=== PATIENT | female | born 1995 | race African-American/Black ===

== ENCOUNTER 2020-06-07 20:47 | Emergency (ER) | payer MEDICAID ==
[~2020-06-07] VITALS: Ht 160 cm; Wt 104.3 kg
[2020-06-07] MEDS ORDERED: Morphine Sulfate 2mg/ml Inj(IV/IM USE ONLY) ONE (20:55)
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
[2020-06-07 21:00] VITALS: BP 132/74
[2020-06-07] MEDS ORDERED: Morphine Sulfate 2mg/ml Inj(IV/IM USE ONLY) IM ONE (21:00)
[2020-06-07] MEDS ORDERED: Tetanus/Diptheria/Pertussis IM ONE (21:15)
--- NOTE | 2020-06-07 21:30 | Diagnostic Imaging Report ---
INDICATION: Pain, trauma COMPARISON: FINDINGS: Single frontal view demonstrates a normal cardiomediastinal silhouette. The lungs are clear. No pleural effusions. The visualized osseous structures are within normal limits. Negative for rib fracture or pneumothorax. IMPRESSION: No acute cardiopulmonary disease.
[2020-06-07 21:45] VITALS: BP 129/85
== END 2020-06-07 21:45 | disposition short-term general hospital (02) ==
LOC: EMR 21:00
DX: S41.111A Laceration without foreign body of right upper arm, initial encounter (principal); S21.111A Laceration without foreign body of right front wall of thorax without penetration into thoracic cavity, initial encounter; S51.811A Laceration without foreign body of right forearm, initial encounter; R10.9 Unspecified abdominal pain; R00.0 Tachycardia, unspecified; X99.9XXA Assault by unspecified sharp object, initial encounter; Y92.9 Unspecified place or not applicable; Z23 Encounter for immunization
CPT/HCPCS: 71045; 90471; 90715; 96372; J2270; Z7502; 99285

== ENCOUNTER 2020-12-23 18:31 | Emergency (ER) | payer MEDICAID ==
[~2020-12-23] VITALS: Ht 160 cm; Wt 77.6 kg
--- NOTE | 2020-12-23 18:48 | NUR ---
ED Nurse Note: 32 weeks of woman walked in to ER from home due to pt has not felt baby moving for 4 hours and constant lower back pain since yesterday. pt aao x4 and ambulatory. calm and cooperative. skin clean and intact. pt denied cardiac or pulmonary distress. no Covid symptoms. pt had abdominal cramping by lunch time and took a nap and cramping is gone now but lower back pain present. 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 pt provided urine sample.
--- NOTE | 2020-12-23 18:52 | NUR ---
ED Nurse Note: pt denied vaginal bleeding or regular contraction. [place] also [place] [facility] [place].
--- NOTE | 2020-12-23 18:56 | Emergency Room Report ---
History of Present Illness General Chief Complaint: Complications Source: Patient Present Illness HPI Patient presents with one episode of a cramp earlier today. She has some discomfort in her vaginal area without discharge or bleeding. She denies any dysuria. She is concerned because her previous baby was born at 29 weeks. Patient states that she last felt the baby moving earlier this morning. When she had the cramps it was 7/10 but states that the pain at this time is less. The patient was getting care up in the [place] area. In October she moved down to [place] to be closer to the father of her 1-year-old child. She has been unable to follow-up with any [facility] in [place] for 2 months. She is not taking vitamins at this time. Patient denies any exposure to Covid positive contacts. No fevers, chills, sore throat, chest pain, palpitations, nausea, vomiting, diarrhea, dysuria, abdominal pain, shortness of breath, joint pain, rashes, depression, anxiety, visual changes, dizziness, headache. 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 Past Medical History: see triage record Social History: Denies: smoking Social History Narrative recent move from [place]: Yes - 32 weeks : 4 Para: 2 Reviewed Nursing Documentation: PMH: Agreed; PSxH: Agreed Nursing Documentation-PMH Past Medical History: No Stated History Review of Systems All Other Systems: negative except mentioned in HPI Physical Exam Vital Signs Date Time Temp Pulse Resp B/P (MAP) Pulse Ox O2 Delivery O2 Flow Rate FiO2 12/23/20 18:37 98.2 90 16 124/68 (86) 97 Room Air Sp02 EP Interpretation: reviewed, normal General Appearance: well appearing, no apparent distress, GCS 15 Head: normocephalic Eyes: bilateral eye normal inspection, bilateral eye PERRL, bilateral eye EOMI ENT: moist mucus membranes Neck: supple Respiratory: lungs clear, normal breath sounds Cardiovascular #1: regular rate, rhythm Cardiovascular #2: 2+ radial (R) Gastrointestinal: normal inspection, normal bowel sounds, non tender, non- distended, other - gravid Genitourinary: no CVA tenderness, deferred - for ultrasound Musculoskeletal: back normal, normal range of motion, gait/station normal Neurologic: alert, oriented x3, grossly normal Medical Decision Making Diagnostic Impression: Primary Impression: Abdominal pain Qualified Codes: R10.30 - Lower abdominal pain, unspecified Additional Impression: 32 weeks gestation of ER Course Patient presents with lower abdominal pain and lack of movement stating she is 32 weeks . Differential includes early labor, urinary tract infection, approximate [place], pelvic pain amongst others. Evaluation with urinalysis and ultrasound. There is no evidence of premature labor or labor at this time. Assessment of viability is important. There is no evidence of premature rupture of membranes by history. Patient lost to care by moving to this area. There will be a low threshold for transferring the patient for observation reestablishing OB connections here. Ultrasound with 32-week 5-day gestation with heart tones 136. UA clear (+ ketones). Discussed with Dr. Craig Santa. Accepts for observation. Patient stable for transfer to [facility]. Laboratory Tests Test 12/23/20 20:48 Urine Color Pale yellow Urine Appearance Slightly cloudy Urine pH 6.5 (4.5-8.0) Urine Specific [place] 1.010 (1.005-1.035) Urine Protein Negative (NEGATIVE) Urine Glucose (UA) Negative (NEGATIVE) Urine Ketones 3+ (NEGATIVE) H Urine Blood Negative (NEGATIVE) Urine Nitrite Negative (NEGATIVE) Urine Bilirubin Negative (NEGATIVE) Urine Urobilinogen Normal MG/DL (0.0-1.0) Urine Leukocyte Esterase Negative (NEGATIVE) Urine RBC Pending Urine WBC Pending Urine Squamous Epithelial Cells Pending Urine Bacteria Pending CT/MRI/US Diagnostic Results CT/MRI/US Diagnostic Results : Imaging Test Ordered: u/s Impression 32 week 5 days - cervix closed FHT = 136 Diagnostic POCUS Bedside Ultrasound Diagnostics: Bedside US Exam performed: Abd Limited Indication: Other Number of Views: Limited Interpreted by Emergency Physi: Yes Abdomen Limited interpretation: Other - FHT and movement normal - adequate amniotic fluid Impression: Other - FHT and movement normal - adequate amniotic fluid Electronically Signed by: Electronically signed by Spencer Horn MD Comment Official gestational ultrasound ordered. Last Vital Signs Date Time Temp Pulse Resp B/P (MAP) Pulse Ox O2 Delivery O2 Flow Rate FiO2 2/3/21 21:54 98.0 88 16 110/68 98 Room Air Status: improved Disposition: SHORT-TERM HOSP Condition: Stable Spencer Horn MD Dec 23, 2020 18:56
--- NOTE | 2020-12-23 19:01 | NUR ---
HAND-OFF: Report given to ELHAM Hendricks. urine sample at bedside.
--- NOTE | 2020-12-23 19:15 | NUR ---
ED Nurse Note: Recieved report from Andi Huston RN. Dr. Horn in with pt at this time. Pt receiving ultrasound. Assumed care of pt.
--- NOTE | 2020-12-23 20:10 | NUR ---
ED Nurse Note: Spoke to Sydney of [facility] center FS and REYNA report faxed to [facility] at [phone]
--- NOTE | 2020-12-23 20:19 | Diagnostic Imaging Report ---
EXAM: US First Trimester , Transabdominal and Transvaginal CLINICAL HISTORY: ABD DIST TECHNIQUE: Real-time transabdominal and transvaginal obstetrical ultrasound of the maternal pelvis and a first trimester with image documentation. Transvaginal imaging was used for better evaluation of the fetus and adnexa. COMPARISON: None. FINDINGS: Gestation: Single intrauterine with ultrasound age of 32 weeks and 5 days and estimated date of delivery of 02/12/2021. LMP age is 32 weeks and 1 day with estimated date of delivery of 02/16/2021. Normal cardiac activity of 136 BPM. The fetus is in a vertex presentation. Anatomy: Exam is not dedicated to evaluate anatomy and therefore is limited in this regard. EFW: Estimated weight is 1816 g plus/-265 g corresponding to 25. 14 percentile. BPD: BPD measures 8.53 cm corresponding to 34 weeks and 3 days HC: HC measures 30.70 cm corresponding to 33 weeks and 4 days AC: AC measures 25.79 cm corresponding to 30 weeks and 0 days FL: FL measures 6.43 cm corresponding to 33 weeks and 1 day. Placenta/amniotic fluid: The amniotic fluid index is normal measuring 10.6 cm, largest pocket of fluid measuring 4.6 cm. Placenta is located on the right lateral side with no evidence of previa. Uterus/cervix: The cervix measures 3.29 cm. The cervix is closed. No myometrial mass. Ovaries: Bilateral adnexal regions are not visualized. Free fluid: No free fluid. Other findings: The ratios are as follows: CI: 88.86 FL/HC: 21.31 HC/AC: 1.17 FL/AC: 24.93 FL/BPD: 75.35 IMPRESSION: 1. Single intrauterine with ultrasound age of 32 weeks and 5 days and estimated date of delivery of 02/12/2021. 2. Vertex presentation. Normal amniotic fluid. Normal cardiac activity. 3. Right lateral placenta with no previa.
--- NOTE | 2020-12-23 20:19 | Diagnostic Imaging Report ---
EXAM: US Second or Third Trimester , Transabdominal CLINICAL HISTORY: ABD TEND TECHNIQUE: Real-time transabdominal obstetrical ultrasound of the maternal pelvis and a second or third trimester with image documentation. COMPARISON: None. FINDINGS: Fetus: Single intrauterine with ultrasound age of 32 weeks and 5 days and estimated date of delivery of 02/12/2021. Heart rate: Normal cardiac activity of 136 BPM. Presentation: The fetus is in a vertex presentation. Placenta: Placenta is located on the right lateral side with no evidence of previa. Amniotic fluid: The amniotic fluid index is normal measuring 10.6 cm, largest pocket of fluid measuring 4.6 cm. Anatomy: Exam is not dedicated to evaluate anatomy and therefore is limited in this regard. BIOMETRICS Gestational age: 32 weeks and 5 days. BILL: LMP age is 32 weeks and 1 day with estimated date of delivery of 02/16/2021. EFW: Estimated weight is 1816 g plus/-265 g corresponding to 25. 14 percentile. BPD: BPD measures 8.53 cm corresponding to 34 weeks and 3 days HC: HC measures 30.70 cm corresponding to 33 weeks and 4 days AC: AC measures 25.79 cm corresponding to 30 weeks and 0 days FL: FL measures 6.43 cm corresponding to 33 weeks and 1 day. MATERNAL: Uterus: Unremarkable. No myometrial mass. Cervix: The cervix measures 3.29 cm. The cervix is closed. Adnexa: Bilateral adnexal regions are not visualized. Free fluid: No free fluid. Other findings: The ratios are as follows: CI: 88.86 FL/HC: 21.31 HC/AC: 1.17 FL/AC: 24.93 FL/BPD: 75.35 IMPRESSION: 1. Single intrauterine with ultrasound age of 32 weeks and 5 days and estimated date of delivery of 02/12/2021. 2. Vertex presentation. Normal amniotic fluid. Normal cardiac activity. 3. Right lateral placenta with no previa.
--- NOTE | 2020-12-23 20:20 | NUR ---
ED Nurse Note: MD-MD call facilitated from Dr. Horn to Dr. Srinivasan Pt accepted at [facility]
--- NOTE | 2020-12-23 20:28 | NUR ---
ED Nurse Note: Pt ambulated to bathroom without difficulty. Pt is back to bed, no new complaints at this time.
--- NOTE | 2020-12-23 20:35 | NUR ---
ED Nurse Note: TFR INFO: Pt to [facility] OB TRIAGE Accepting MD: Dr. Dayana Srinivasan Report to [phone] [place] ETA 2201
[2020-12-23 20:58] LABS: APPEARANCE,URINE SLIGHTLY CLOUDY; BILIRUBIN, URINE NEGATIVE (NEGATIVE); COLOR,URINE PALE YELLOW; GLUCOSE, URINE (UA) NEGATIVE (NEGATIVE); KETONES,URINE 3+ (NEGATIVE); LEUKOCYTE ESTERASE ,URINE NEGATIVE (NEGATIVE); NITRITE,URINE NEGATIVE (NEGATIVE); PH,URINE 6.5 (4.5-8.0); PROTEIN,URINE NEGATIVE (NEGATIVE); UROBILINOGEN,URINE NORMAL MG/DL (0.0-1.0)
[2020-12-23 21:01] VITALS: BP 111/62
[2020-12-23 21:54] VITALS: BP 110/68
--- NOTE | 2020-12-23 21:57 | NUR ---
ER DISCHARGE NOTE: Patient is cleared to be transferred to [facility] OB Triage, per Dr. Horn, pt is aao x4, on room air, with stable vital signs. Reports was given to EMS and pt transferred via stretcher.
== END 2020-12-23 21:59 | disposition short-term general hospital (02) ==
LOC: EMR 18:58
DX: O26.893 Other specified pregnancy related conditions, third trimester (principal); Z3A.32 32 weeks gestation of pregnancy; Z88.1 Allergy status to other antibiotic agents
CPT/HCPCS: 76805; 76817; 81003; Z7502; 99285